=== PATIENT | male | born 1970 | race African-American/Black ===

== ENCOUNTER 2025-08-13 06:44 | Day surgery (SDC) | payer BC ==
[2025-08-12 13:42] VITALS: BMI 40.4
[2025-08-13] MEDS ORDERED: PROPOFOL 20 ML ONE ×3 (10:17→10:43)
== END 2025-08-13 12:15 | disposition home or self-care (01) ==
LOC: SDC 06:44
PROVIDERS: ATTEND Internal Medicine Gastroenterology
PROC: 0DJD8ZZ Inspection of Lower Intestinal Tract, Via Natural or Artificial Opening Endoscopic (ICD-10-PCS; principal; 2025-08-13)
PROC: 0DB68ZX Excision of Stomach, Via Natural or Artificial Opening Endoscopic, Diagnostic (ICD-10-PCS; principal; 2025-08-13)
DX: Z12.11 Encounter for screening for malignant neoplasm of colon (principal); D13.2 Benign neoplasm of duodenum; K29.50 Unspecified chronic gastritis without bleeding; K21.9 Gastro-esophageal reflux disease without esophagitis; I10 Essential (primary) hypertension; Z90.49 Acquired absence of other specified parts of digestive tract; Z88.0 Allergy status to penicillin; Z88.8 Allergy status to other drugs, medicaments and biological substances; Z79.899 Other long term (current) drug therapy
CPT/HCPCS: 88305; 88342; J2704